=== PATIENT | female | born 1960 | race Caucasian/White ===

== ENCOUNTER 2017-05-21 20:47 | Outpatient (CLI) | payer OTHER ==
[2012-09-04 18:19] VITALS: TEMP 98.5; BMI 49.7
== END 2017-05-21 20:48 | disposition short-term general hospital (02) ==
LOC: AMBL 20:47
PROVIDERS: ATTEND Internal Medicine Geriatric Medicine
DX: S69.92XA Unspecified injury of left wrist, hand and finger(s), initial encounter (principal); S00.12XA Contusion of left eyelid and periocular area, initial encounter; W01.0XXA Fall on same level from slipping, tripping and stumbling without subsequent striking against object, initial encounter

== ENCOUNTER 2017-08-16 09:46 | Outpatient (CLI) | payer OTHER ==
[2012-09-04 18:19] VITALS: TEMP 98.5; BMI 49.7
--- NOTE | 2017-08-16 10:25 | DI ---
EXAM: Four views of the right knee. History: Right knee pain. Findings: No acute fracture or dislocation. Moderate tricompartmental joint space narrowing with ma rginal sclerosis and osteophyte formation. No soft tissue foreign bodies. Superior patellar enthesi opathy Impression: 1. No acute osseous abnormality. 2. Moderate osteoarthritis
--- NOTE | 2017-08-16 10:26 | DI ---
EXAM: Four views of the left knee. History: Left knee pain. Findings: No acute fracture or dislocation. No abnormal calcifications or radiopaque foreign bodies . Moderate tricompartmental joint space narrowing with marginal sclerosis and osteophyte formation. Superior patellar enthesiopathy Impression: 1. No acute osseous abnormality. 2. Moderate osteoarthritis
== END 2017-08-16 09:47 | disposition home or self-care (01) ==
LOC: RAD 09:46
PROVIDERS: ATTEND Emergency Medicine
DX: F33.1 Major depressive disorder, recurrent, moderate (principal); K21.9 Gastro-esophageal reflux disease without esophagitis; D50.0 Iron deficiency anemia secondary to blood loss (chronic); F41.1 Generalized anxiety disorder; E78.5 Hyperlipidemia, unspecified; C50.912 Malignant neoplasm of unspecified site of left female breast; M19.90 Unspecified osteoarthritis, unspecified site
CPT/HCPCS: 36415; 80053; 80061; 84443; 85025